=== PATIENT | female | born 2000 | race Caucasian/White ===

== ENCOUNTER 2023-04-22 15:08 | Emergency (ER) | payer OTHER, SELFPAY ==
--- NOTE | ~2023-04-22 | US_ITS ---
EXAMINATION: US pelvic complete w TV DATE: 04/22/2023 19:43 INDICATION: Lower abdominal pain with severe cramping TECHNIQUE: Multiple transabdominal and endovaginal sonographic images of the pelvis were obtained. COMPARISON: None FINDINGS: The uterus measures 8.0 x 4.2 x 4.6 cm. The endometrial complex measures 9 mm in thickness. The righ t ovary measures 3.7 x 1.7 x 2.5 cm. The left ovary measures 2.4 x 2.0 x 1.8 cm. There are a few subc entimeter follicles in both ovaries. Vascular flow is identified in both ovaries on color Doppler. Th e right ovary which can be seen along the periphery of a 1.5 similar peripherally hypoechoic, central ly hypoechoic lesion likely representing a corpus luteum cyst. There is no free fluid in the pelvis. IMPRESSION: 1. 1.5 cm likely corpus luteum cyst in the right ovary. Otherwise unremarkable pelvic ultrasound. Reviewed, dictated and finalized at location A. RY DECORATOR
[2023-04-22 15:17] VITALS: BP 107/69; PULSE 100; RESP 16; TEMP 36.9; O2SAT 100
[2023-04-22 16:48] VITALS: BP 107/69; PULSE 90; RESP 18; TEMP 36.6; O2SAT 99
--- NOTE | 2023-04-22 18:02 | ED.GENADULT ---
HPI - General Adult General Chief complaint: Unspecified Stated complaint: PERIOD CRAMPS Time Seen by Provider: 04/22/23 17:02 Source: patient Mode of arrival: ambulatory Limitations: no limitations History of Present Illness HPI narrative: Patient is a 22 y/o female who presents to the ED with c/o menstrual cramping. Patient reports she started her menstrual cycle today. She had mild pain throughout her lower abdomen when she woke up this morning, but developed worsening pain/cramping around 930am while at work. Had to leave work d/t the pain. Patient took Tylenol at 5am this morning, has not taken anything further for pain. She states she typically experiences cramps with her cycles, but not this severe. She notes that the bleeding is normal for her in amount/heaviness. Reports some nausea. Denies vomiting. Denies fevers. Denies dysuria/hematuria. Related Data Allergies Allergy/AdvReac Type Severity Reaction Status Date / Time pseudoephedrine Allergy Mild Verified 09/22/09 09:08 Review of Systems Review of Systems: CONSTITUTIONAL: Denies fever, chills, or sweats. CARDIOVASCULAR: Denies chest pain. RESPIRATORY: Denies dyspnea. GASTROINTESTINAL: See HPI. GENITOURINARY: See HPI. SKIN: Denies rash or itching. MUSCULOSKELETAL: Denies back pain, joint pain, or myalgia. All systems reviewed & are unremarkable except as noted in HPI and below Exam Narrative: GENERAL: Well appearing, thin, non-toxic, in no acute distress. HEAD: Normocephalic, atraumatic. NECK: Supple. No adenopathy, no masses. RESPIRATORY: Airway patent, respirations nonlabored. Clear to auscultation bilaterally, no rales, rhonchi, wheezing. CARDIOVASCULAR: Regular rate and rhythm without murmurs, rubs, or gallops. Peripheral pulses 2+ and equal bilaterally. ABDOMINAL: Soft, mild nonspecific discomfort with palpation throughout lower abdomen, no significant focal tenderness, no rebound, nondistended, no hepatosplenomegaly. Normoactive BS. MUSCULOSKELETAL: Moves all extremities. Strength/ROM intact without gross deformities. SKIN: Warm, dry, normal color. No rashes. NEURO: A&O X3. Speech clear. Cranial nerves II-XII grossly intact. Steady gait. No ataxic movements. PSYCHIATRIC: Appropriate mood and affect. Normal interaction. Course Vital Signs Vital signs: Vital Signs Temperature 98.5 F 04/22/23 15:17 Pulse Rate 100 04/22/23 15:17 Respiratory Rate 16 04/22/23 15:17 Blood Pressure 107/69 04/22/23 15:17 Pulse Oximetry 100 04/22/23 15:17 Temperature 98 F 04/22/23 16:48 Pulse Rate 90 04/22/23 16:48 Respiratory Rate 18 04/22/23 16:48 Blood Pressure 107/69 04/22/23 16:48 Pulse Oximetry 99 04/22/23 16:48 Medical Decision Making MDM Narrative Medical decision making narrative: Patient present ED with painful menstrual cramping. Started cycle today. Cramping worse than usual. Vital stable upon arrival. Patient afebrile. In no acute distress. No significant focal tenderness to palpation throughout abdominal exam, no evidence of surgical abdomen. Basic laboratory studies obtained and unremarkable. Stable H&H. No significant abnormalities. No leukocytosis. Pelvic ultrasound obtained and showing right ovarian cyst, no other significant abnormalities, vascular blood flow noted to bilateral ovaries. Patient updated on lab and imaging results. She is feeling better with supportive therapy. Pain improved. Advised patient to continue Tylenol and ibuprofen as needed for pain, close follow-up with OBGYN for further evaluation. Given return precautions. Patient agrees with plan and feels ready for discharge home. Discharged in stable condition. Medical Records Medical records reviewed: Yes I reviewed the external patient's medical records. Vital Signs Vital Signs: Vital Signs Temperature 98.5 F 04/22/23 15:17 Pulse Rate 100 04/22/23 15:17 Respiratory Rate 16 04/22/23 15:17 Blood Pressure 107/69
[2023-04-22] MEDS: ACETAMINOPHEN 500 MG TABLET 1000 MG PO (18:17)
[2023-04-22 18:36] LABS: Basophils Percent Auto 0.4 % (0.2-1.2); Eosinophils Absolute Auto 0.1 K/mm3 (0-0.3); Eosinophils Percent Auto 0.9 % (0-4.4); Hematocrit 38.4 % (37.0-47.0); Hemoglobin 13.5 g/dL (12.0-15.0); Immature Granulocyte Absolute 0.03 K/mm3 (0.00-0.031); Immature Granulocyte Percent A 0.3 % (0-0.5); Lymphocytes Absolute Auto 2.53 K/mm3 (0.9-3.2); Lymphocytes Percent Auto 27.4 % (18.3-44.2); Mean Corpuscular HGB Conc 35.2 g/dl (32-36); Mean Corpuscular Hemoglobin 32.4 pg (26-34); Mean Corpuscular Volume 92.1 fl (80-100); Mean Platelet Volume 10.5 fl (7.4-10.4); Monocytes Absolute Auto 0.7 K/mm3 (0.1-0.6); Monocytes Percent Auto 7.6 % (2.6-8.5); Neutrophils Absolute Auto 5.9 K/mm3 (1.3-6.7); Neutrophils Percent Auto 63.4 % (45.5-73.1); Platelet Count Result 169 k/mm3 (150-375); Red Blood Count 4.17 M/mm3 (4.2-5.4); Red Cell Distribution Width 11.6 % (11.5-14.5); White Blood Count 9.2 K/mm3 (4.5-10.0)
[2023-04-22 18:46] LABS: Alanine Aminotransferase 15 U/L (6-35); Alkaline Phosphatase 39 U/L (38-126); Anion Gap 9 mmol/L (8-16); Aspartate Amino Transferase 20 U/L (14-36); Bilirubin,Total 0.5 mg/dL (0.2-1.3); Blood Urea Nitrogen 8 mg/dL (7-17); Carbon Dioxide 20 mmol/L (22-30); Chloride 108 mmol/L (98-107); Estimated CRCL calculation 115 ml/min; Estimated Glomerular Filt Rate > 60; Glucose 83 mg/dL (65-110); Potassium 3.6 mmol/L (3.4-5.0); Sodium 137 mmol/L (137-145)
--- NOTE | 2023-04-22 19:11 | PC.NURSE ---
This RN assumed care of patient. This RN took patient report from ELIZABETH Grajeda.
[2023-04-22] MEDS: KETOROLAC (*BKC) 60 MG/2 ML VIAL IM (20:20)
[2023-04-22 21:27] VITALS: BP 106/78; PULSE 89; RESP 20; O2SAT 100
== END 2023-04-22 21:29 | disposition home or self-care (01) ==
PROVIDERS: Emergency Provider Physician Assistant; PCP Family Medicine
DX: N94.6 Dysmenorrhea, unspecified (principal); N83.201 Unspecified ovarian cyst, right side
CPT/HCPCS: 36415; 76830; 76856; 80053; 85025; 96372; 99284; A9270; J1885

== ENCOUNTER 2023-05-06 15:52 | Emergency (ER) | payer OTHER, SELFPAY ==
[2023-05-06 16:06] VITALS: BP 100/63; PULSE 98; RESP 16; TEMP 36.4; O2SAT 100
--- NOTE | 2023-05-06 16:17 | ED.FEMALEGU ---
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 Patient notes that the burning sensation began around 10:30 this morning. No associated vaginal discharge. She has taken 2 baths today without improvement of her symptoms. She notes that this feels similar to her prior yeast infections and UTIs. She attempted to call her OBGYN who she usually sees for this however she could not get in until Wednesday so she came into the ED for evaluation. No associated fever or chills. She last had intercourse a couple of days ago, was not particularly painful. She denies any vaginal bleeding. She does note that she had a very painful menstrual cycle about 2 weeks ago. Does not believe she could be . No history of DM. Related Data Allergies Allergy/AdvReac Type Severity Reaction Status Date / Time pseudoephedrine Allergy Mild Hives Verified 05/06/23 16:18 Review of Systems Review of Systems: All systems reviewed & are unremarkable except as noted in HPI and below Exam Narrative: GENERAL: Well-appearing, well-nourished, and in no acute distress. HEAD: Normocephalic, atraumatic. EYES: PERRLA and EOMI. ENT: Nares clear. Mucous membranes moist. NECK: Supple. CHEST: Clear to auscultation. No respiratory distress. HEART: Regular rate and rhythm. Normal peripheral pulses. ABDOMEN: Soft, nontender, nondistended. : (exam performed with RN as reconciliation clerk) thin clear to yellow discharge present, cervix erythematous with ulceration appreciated at 3 o'clock position. EXTREMITIES: Normal range of motion. No edema. SKIN: Warm, dry, no rash. NEURO: No focal deficits. Alert and oriented x3. PSYCH: Normal mood and affect. Course Course Emergency Course: Chart review performed. Patient here with vaginal burning and cramping. Triage vitals normal. ED visit on 04/22/23 for menstrual cramping. She had a negative workup including a transvaginal ultrasound which showed a right ovarian cyst. Trichomonas, gonorrhea, chlamydia negative. Will treat for possible BV and yeast infection. Flagyl and fluconazole given here. The results of pertinent diagnostic studies and exam findings were discussed. The patient?s provisional diagnosis and plan of care were discussed with the patient and present family. The patient and/or present family expressed understanding of the diagnosis and plan. The nurse was instructed to provide written instructions and appropriate follow-up information. The patient understands their need and responsibility to obtain additional follow-up as instructed. The risks of medications administered and prescribed were discussed with the patient and family present. Vital Signs Vital signs: Vital Signs Temperature 97.5 F L 05/06/23 16:06 Pulse Rate 98 05/06/23 16:06 Respiratory Rate 16 05/06/23 16:06 Blood Pressure 100/63 05/06/23 16:06 Pulse Oximetry 100 05/06/23 16:06 Temperature 97.5 F L 05/06/23 16:06 Pulse Rate 88 05/06/23 18:21 Respiratory Rate 18 05/06/23 18:21 Blood Pressure 104/68 05/06/23 18:21 Pulse Oximetry 100 05/06/23 18:21 MDM - Female Genitourinary Lab Data Labs: Lab Results 05/06/23 05/06/23 Range/Units 17:34 18:19 Urine Color Yellow (Yellow) Urine Appearance Clear (Clear) Urine pH 6.5 (5.0-9.0) Ur Specific [place] 1.015 (1.001-1.035) Urine Protein Negative (Negative) mg/dL Urine Glucose (UA) Negative (Negative) mg/dL Urine Ketones Negative (Negative) mg/dL Ur Blood (Man) Negative (Negative) Urine Nitrate Negative (Negative) Urine Bilirubin Negative (Negative) Urine Urobilinogen 0.2 (<2.0) mg/dL Leukocyte Esterase Rfl Trace H (Negative) RUPALI/UL Urine RBC 0-2 (0-2) /hpf Urine WBC 21
[2023-05-06 17:37] VITALS: BP 104/67; PULSE 90; RESP 16; O2SAT 100
[2023-05-06 18:05] VITALS: BP 102/64; PULSE 93; RESP 18; O2SAT 97
[2023-05-06 18:09] LABS: Appearance Urine Clear (Clear); Bacteria Urine None Seen /hpf; Bilirubin Urine Negative (Negative); Blood Urine Negative (Negative); Color Urine Yellow (Yellow); Glucose Urine UA Negative (Negative); Ketones Urine Negative (Negative); Leukocyte Esterase Ur Trace LEU/UL (Negative); Nitrate Urine Negative (Negative); Non Pathogenic Casts 0-2; Protein Urine Negative (Negative); RBC Urine 0-2 /hpf (0-2); Specific Grav Ur 1.015 (1.001-1.035); Squamous Epithelial Cell Urine None seen /hpf (Few); Urobilinogen Urine 0.2 mg/dL (<2.0); WBC Urine 21-50 /hpf; pH Urine 6.5 (5.0-9.0)
[2023-05-06 18:13] LABS: Add Urine Microscopic? YES
[2023-05-06 18:21] VITALS: BP 104/68; PULSE 88; RESP 18; O2SAT 100
[2023-05-06 20:07] LABS: Trichomonas Vag PCR NOT DETECTED (NOT DETECTE)
[2023-05-06 20:30] LABS: Chlamydia trachomatis NOT DETECTED (NOT DETECTE); Neisseria gonorrhoeae PCR NOT DETECTED (NOT DETECTE)
[2023-05-06] MEDS: FLUCONAZOLE 150 MG TABLET PO (21:09)
[2023-05-06] MEDS: metroNIDAZOLE 500 MG TABLET PO (21:09)
[2023-05-06 21:12] VITALS: BP 100/56; PULSE 88; RESP 16; O2SAT 100
== END 2023-05-06 21:13 | disposition home or self-care (01) ==
PROVIDERS: Emergency Provider Student in an Organized Health Care Education/Training Program; PCP Family Medicine
DX: N89.8 Other specified noninflammatory disorders of vagina (principal); Z87.440 Personal history of urinary (tract) infections
CPT/HCPCS: 81001; 81025; 87086; 87491; 87591; 87661; 99284; A9270